=== PATIENT | male | born 1960 | race Caucasian/White ===

== ENCOUNTER 2018-09-23 07:45 | Day surgery (SDC) | payer OTHER ==
[2018-09-16 11:20] LABS: Absolute Lymphocytes (CBC) 1.2 K/uL (0.7-4.9); Absolute Monocytes 0.4 K/uL (0.1-1.3); Absolute Neutrophil 2.3 K/uL (1.8-8.0); Basophils % 1.4 % (0-1.3); Eosinophils % 4.5 % (0-4.4); Hematocrit 44.3 % (39.6-49.0); Lymphocytes % 29.1 % (15.3-44.8); MCH 26.8 pg (27.0-35.0); MCV 80.9 fL (80-100); MPV 8.2 fL (7.6-11.3); Monocytes % 10.1 % (3.3-12.3); RBC Red Blood Cell Count 5.48 M/uL (4.33-5.43)
[2018-09-16 11:26] LABS: Protime INR 1.13
[2018-09-16 11:35] LABS: Potassium 4.3 mmol/L (3.5-5.1)
--- NOTE | 2018-09-17 04:19 | EKG ---
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
--- OUTSIDE RECORDS SUMMARY | 2018-09-23 07:49 | XMS REPORT ---
:1960 Author Organization [employer] Care Team Providers Name Role Phone Lázaro Lopez Provider Role Unavailable Allergies No Known Allergies Problems No Known Problems Medications No Known Medications Results No Known Results Summary Purpose [employer]Clinical[employer] Submission
--- OUTSIDE RECORDS SUMMARY | 2018-09-23 07:49 | XMS REPORT ---
:1960 Author Organization [employer] Care Team Providers Name Role Phone Lázaro Lopez Provider Role Unavailable Allergies No Known Allergies Problems No Known Problems Medications Medication Code System Code Instructions Start End Date Status Dosage Date [facility] [id number] 7.5-325 MG Orally Sep 15, Sep 25, Active 1 tablet every 6 hrs 2017 2017 as needed Results No Known Results Summary Purpose eClinicalWorks Submission
--- OUTSIDE RECORDS SUMMARY | 2018-09-23 07:49 | XMS REPORT ---
:1960 Author Organization [employer] Care Team Providers Name Role Phone Lázaro Lopez Provider Role Unavailable Allergies, Adverse Reactions, Alerts Substance Reaction Event Type N.K.D.A. Info Not Available Non Drug Allergy Problems Problem Type Condition Code Onset Dates Condition Status Assessment Pain, joint, knee, right M25.561 Active Assessment Complex tear of medial meniscus of S83.231A Active right knee as current injury, initial encounter Medications No Known Medications Results Name Result Date Reference Range Unit Abnormality Flag MRI : Knee, right Summary Purpose eClinicalWorks Submission
[2018-09-23] MEDS ORDERED: CEFAZOLIN/SWI 1gm 1 GM/10 ML SYR ONE (08:05)
[2018-09-23] MEDS ORDERED: Ringers Lactate 1,000 ML IV ONE (08:05)
[2018-09-23] MEDS ORDERED: FENTANYL CITR 100 MCG/2 ML ONE (09:45)
[2018-09-23] MEDS ORDERED: PROPOFOL 200 MG/20 ML VIAL IV ONE (09:45)
[2018-09-23] MEDS ORDERED: MIDAZOLAM HCL 2 MG/2 ML INJ ONE ×2 (09:46→10:13)
[2018-09-23] MEDS ORDERED: LIDOCAINE 2% MPF 5 ML VIAL ONE (09:46)
[2018-09-23] MEDS ORDERED: ONDANSETRON HCL 40 MG/20 ML VIAL ONE (09:46)
[2018-09-23] MEDS: BUPIVACAINE 0.25% PF 10 ML VIAL ONE ×2 (10:43→11:02)
--- NOTE | 2018-09-23 11:15 | P.BOP ---
Preoperative diagnosis: right knee medial meniscus tear Postoperative diagnosis: same Primary procedure: right knee arthroscopic partial medial meniscectomy Secondary procedure: none Research Fellow: NONE,NONE Estimated blood loss: <5 cc Specimen: none Findings: see dictation Anesthesia: General Complications: None Implants: none Fluids & blood products: per anesthesia record; TT: 26 mins @ 250 mmHg Transferred to: Recovery Room Condition: Good
[2018-09-23] MEDS ORDERED: MORPHINE 4 MG/ML SYR ONE (11:35)
[2018-09-23 12:22] VITALS: BP 122/88; TEMP 96.1; O2SAT 100
[2018-09-23] MEDS ORDERED: HYDROCODONE/APAP 7.5/325 MG TAB ONE (12:36)
--- NOTE | 2018-09-24 00:24 | OP ---
Date of Procedure: 09/23/2018 Surgeon: Lázaro Lopez MD Preoperative Diagnosis: Right knee medial meniscus tear. Postoperative Diagnosis: Right knee medial meniscus tear. Procedure Performed: Right knee arthroscopic partial medial meniscectomy. Anesthesia: General LMA. Fluids: Per Anesthesia record Estimated Blood Loss: Less than 5 cc. Implants: None. Complications: None. Tourniquet Time: 26 minutes at 250 mmHg. Indication For Procedure: Ramos is a 58-year-old male who presented to my clinic with signs, sympto ms, and MRI findings consistent with a complex medial meniscus tear of his right knee. I discussed w ith the patient at length risks and benefits associated with operative and nonoperative treatment. Charley luciano expressed understanding and elected to proceed with operative treatment. Description Of Procedure: After informed consent was obtained, the patient was identified in the pre operative holding area. The right lower extremity was marked. The patient was then taken back to [facility] operating room, transferred to the operating table in supine fashion, and placed under general LMA anesthesia. The right lower extremity was then prepped and draped in usual sterile fashion. A time- out was initiated. Correct patient and procedure were confirmed and identified. The patient did rec eive his preoperative prophylactic antibiotics. The right lower extremity was exsanguinated using an Esmarch and the tourniquet was inflated to 250 mmHg. Standard anterior medial and anterior lateral portals were created, and diagnostic arthroscopy was performed. The arthroscope was first brought in to the patellofemoral joint. The patient was noted to have some mild fissuring of the trochlear groo ve, but otherwise no significant chondromalacia noted. The arthroscope was brought into both medial and lateral gutters. There were no loose bodies in the gutters. The arthroscope was brought in the medial compartment. The patient was also noted to have some breakthrough changes of the medial femor al condyle. He was noted to have a complex tear of the posterior horn of the medial meniscus. A par tial medial meniscectomy was performed using meniscal biter and arthroscopic shaver. This was perfor med . Medial meniscus was found to be stable to probe after the partial medial meniscectom y was performed. The arthroscope was then brought into the intercondylar notch. The patient was not ed to have an intact ACL and PCL. The arthroscope was then brought into the lateral compartment wher e the patient was noted to have an intact lateral meniscus, but no significant chondromalacia noted o f the lateral femoral condyle or lateral tibial plateau. The arthroscopic instruments were then alvarez wilbert without complication. Portals were approximated using a 3-0 Monocryl. Sterile dressings were ap plied. The patient was given 0.25% Marcaine at the incision site. He was awakened, tourn iquet was let down, and transferred to the in stable condition. Postoperative Plan: He will be weightbearing as tolerated on his right lower extremity. Physical Th jordan will be consulted postoperatively, and he will follow the post-meniscectomy protocol. MARIKA/STEVE Voice ID: [id number] Report ID: [id number]
== END 2018-09-23 13:15 | disposition home or self-care (01) ==
LOC: OR 07:45
PROVIDERS: ATTEND Orthopaedic Surgery Sports Medicine
PROC: 0SBC4ZZ Excision of Right Knee Joint, Percutaneous Endoscopic Approach (ICD-10-PCS; principal; 2018-09-23 09:45)
DX: S83.231A Complex tear of medial meniscus, current injury, right knee, initial encounter (principal); K21.9 Gastro-esophageal reflux disease without esophagitis; M19.90 Unspecified osteoarthritis, unspecified site; Z83.3 Family history of diabetes mellitus; Z82.49 Family history of ischemic heart disease and other diseases of the circulatory system
CPT/HCPCS: 36415; 80048; 85025; 85610; 85730; 93005; J0690; J2250; J2405; J2704; J3010